=== PATIENT | male | born 1955 | race Hispanic/Latino ===

== ENCOUNTER 2017-11-06 23:09 | Emergency (ER) | payer SELFPAY ==
[2017-11-07 00:12] LABS: ALT (SGPT) 16 U/L (8-55); AST (SGOT) 13 U/L (5-34); Albumin 4.2 g/dL (3.5-5.0); Alkaline Phosphatase 95 U/L (40-150); Anion Gap 9 mmol/L (10-20); BUN (Urea Nitrogen) 12 mg/dL (8.4-25.7); Bilirubin, Total 0.9 mg/dL (0.2-1.2); Calc. Creatinine Clearance 0 mL/min (70-130); Calcium 9.1 mg/dL (7.8-10.44); Carbon Dioxide 28 mmol/L (22-29); Chloride 106 mmol/L (98-107); Estimated GFR-MDRD 81; Glucose 103 mg/dL (70-105); Lipase 43 U/L (8-78); Potassium 4.3 mmol/L (3.5-5.1); Protein, Total 7.2 g/dL (6.0-8.3); Sodium 139 mmol/L (136-145)
[2017-11-07 00:44] LABS: #Eosinphils 0.6 thou/uL (0.0-0.7); #Lymphocytes 1.7 thou/uL (1.20-3.40); #Monocytes 0.8 thou/uL (0.11-0.59); #Neutrophils 4.1 thou/uL (1.40-6.50); %Basophils 0.6 % (0.0-1.0); %Eosinophils 8.3 % (0.0-10.0); %Lymphocytes 23.9 % (21.0-51.0); %Monocytes 10.8 % (0.0-10.0); %Neutrophils 56.4 % (42.0-75.0); Hemoglobin 15.1 g/dL (14.0-18.0); Mean Corpuscular HGB CONC 34.8 g/dL (32.0-36.0); Mean Corpuscular Hemoglobin 31.2 pg (27.0-31.0); Mean Corpuscular Volume 89.7 fl (80.0-94.0); PLT Morphology Comment Appears Decreased; Platelet Count 101 thou/uL (130-400); RBC Distribution Width 11.5 % (11.5-14.5); Red Blood Cell (RBC) Count 4.82 mill/uL (4.70-6.10); White Blood Cell (WBC) Count 7.3 thou/uL (4.8-10.8)
[2017-11-07 01:09] LABS: Bilirubin Negative (Negative); Blood, Urine Negative (Negative); Clarity CLEAR (Clear); Glucose, Urine (Dipstick) Negative (Negative); Leukocyte Negative (Negative); Nitrite Negative (Negative); Protein, Urine (Dipstick) Negative (Neg-Trace); Specific Gravity, Urine 1.013 (1.002-1.036)
[2017-11-07] MEDS ORDERED: Bisacodyl 10 MG SUPP PR SCH (02:00)
--- NOTE | 2017-11-07 09:00 | RAD ---
CHEST 1 VIEW AND ABDOMEN 2 VIEWS: Date: 11/07/17 HISTORY: Left-sided abdominal pain. FINDINGS/IMPRESSION: The heart size is normal. No confluent areas of consolidation, pneumothorax, or pleural effusions are seen. No free air or differential fluid levels are identified. There are degenerative changes in the spine. There is fecal material in the colon. POS: [facility]
== END 2017-11-07 02:16 | disposition home or self-care (01) ==
LOC: ERS 23:09 → EDBD 23:09 → ERS 11-07 02:16
DX: K59.00 Constipation, unspecified (principal); F17.210 Nicotine dependence, cigarettes, uncomplicated
CPT/HCPCS: 36415; 74022; 80053; 81003; 82150; 83690; 85025; 99406

== ENCOUNTER 2017-11-17 12:51 | Outpatient (CLI) | payer OTHER ==
--- NOTE | 2017-11-17 14:01 | ULT ---
SOFT TISSUE ULTRASOUND: Date: 11/17/17 Directed ultrasound of left inguinal region requested. HISTORY: Inguinal pain. FINDINGS: An inguinal hernia cannot be confirmed by ultrasound, although it is not excluded. Patient complains of pain just to the left of the base of the penis. This area is evaluated with ultrasound and there i s a soft tissue fullness in this region of uncertain significance. No definite mass or adenopathy see n. IMPRESSION: Inguinal hernia cannot be confirmed or ruled out. A questionable soft tissue fullness at the base of the penis to the left where patient complains of pain. No circumscribed mass, fluid collection, absce ss, or adenopathy identified. POS: [facility]
== END 2017-11-17 12:52 | disposition home or self-care (01) ==
LOC: ULT 12:51
PROVIDERS: ATTEND Nurse Practitioner Family
DX: R10.32 Left lower quadrant pain (principal)
CPT/HCPCS: 76705